=== PATIENT | male | born 1995 | race Caucasian/White ===

== ENCOUNTER 2016-11-10 21:08 | Emergency (ER) | payer SELFPAY ==
[2016-11-10 21:14] VITALS: BP 117/84
== END 2016-11-10 22:47 | disposition home or self-care (01) ==
LOC: ED 21:08
DX: S83.412A Sprain of medial collateral ligament of left knee, initial encounter (principal); X50.1XXA Overexertion from prolonged static or awkward postures, initial encounter; Y93.89 Activity, other specified; Y92.89 Other specified places as the place of occurrence of the external cause; Y99.8 Other external cause status